=== PATIENT | female | born 1955 | race Caucasian/White ===

== ENCOUNTER 2019-10-09 20:25 | Emergency (ER) | payer BC ==
[2019-10-09 20:40] VITALS: BMI 23.8
[2019-10-09 21:04] VITALS: BP 138/79; PULSE 65; TEMP 97.8
--- NOTE | 2019-10-10 07:35 | PDOC ---
Documentation entered by Cristhian Nobles SCRIBE, acting as scribe for Carter Schmitz MD. Carter Quintana MD: This documentation has been prepared by the Mallorie esquivel Nirvannie, SCRIBE, under my direction and personally reviewed by me in its entirety. I confirm that the documentation accurately reflects all work, treatment, procedures, and medical decision making performed by me. History of Present Illness - General Chief Complaint: Ingestion Stated Complaint: ACCIDENTAL INGESTION Time Seen by Provider: 10/09/19 20:29 History Source: Patient Exam Limitations: No Limitations - History of Present Illness Initial Comments: 10/09/19 20:58 The patient is a year old female, with a significant past medical history of dementia, hypertension, hyperlipidemia, rheumatoid arthritis, who presents to the emergency department with accidental ingestion of her medications. As per family at bedside, the patient accidentally took her morning medications this evening at 7:45pm. While in the ED, patient feels at her baseline. History is limited secondary to patient's dementia. The medications include: Centrum Silver Coconut Oil 2000 mg [place]-3, Fish Oil 1000 mg Ginkgo Biloba 120 mg Lipitor 10 mg Lisinopril 20 mg Namenda 10 mg HCTZ 12.5 mg Xeljanz Xr 11 mg Aspirin 81 mg She denies recent fevers, chills, headache or dizziness. She denies recent nausea, vomit, diarrhea or constipation. She denies recent dysuria, frequency, urgency or hematuria. She denies recent chest pain or shortness of breath. Allergies: Shellfish Social history: Demented. Nonsmoker. Denies EtOH use and recreational drug use. Past History - Past Medical History Allergies/Adverse Reactions: Allergies Allergy/AdvReac Type Severity Reaction Status Date / Time shellfish derived Allergy Verified 10/09/19 20:27 Home Medications: Ambulatory Orders Alendronate Sodium [Fosamax] 1 tab WEEKLY 10/09/19 Aspirin [Aspirin EC] 81 mg PO DAILY 10/09/19 Atorvastatin Ca [Lipitor] 10 mg PO DAILY 10/09/19 Coconut Oil 2,000 mg PO DAILY 10/09/19 Donepezil HCl 10 mg PO DAILY 10/09/19 Ginkgo Biloba 120 mg PO DAILY 10/09/19 Hydrochlorothiazide [Hctz -] 12.5 mg PO DAILY 10/09/19 Lisinopril 20 mg PO DAILY 10/09/19 Memantine HCl [Namenda -] 10 mg PO BID 10/09/19 Multivit-Min/FA/Lycopen/Lutein [Centrum Silver Tablet] 1 each PO DAILY 10/09/19 [place]-3 Fatty Acids/Fish Oil [Fish Oil 1,000 mg Capsule] 1 each PO DAILY Tofacitinib Citrate [Xeljanz Xr] 11 mg PO DAILY 10/09/19 COPD: No Dementia: Yes HTN: Yes Hypercholesterolemia: Yes Other medical history: RHEUMATOID ARTHRITIS - Surgical History Cholecystectomy: Yes - Psycho Social/Smoking Cessation Hx Smoking History: Never smoked Have you smoked in the past 12 months: No Information on smoking cessation initiated: No Hx Alcohol Use: No Review of Systems - Review of Systems Able to Perform ROS?: Yes Comments:: 10/09/19 21:00 CONSTITUTIONAL: Absent: fever, no chills, no fatigue EYES: Absent: visual changes ENT: Absent: ear pain, no sore throat CARDIOVASCULAR: Absent: chest pain, no palpitations RESPIRATORY: Absent: cough, no SOB GI: Absent: abdominal pain, no nausea, no vomiting, no constipation, no diarrhea GENITOURINARY: Absent: dysuria, no frequency, no hematuria MUSKULOSKELETAL: Absent: back pain, no arthralgia, no myalgia SKIN: Absent: rash NEURO: Absent: headache All Other Systems: Reviewed and Negative *Physical Exam - Vital Signs Last Vital Signs Temp Pulse Resp BP Pulse Ox 67.8 F L 69 18 147/83 100 10/09/19 20:25 10/09/19 20:25 10/09/19 20:25 10/09/19 20:25 10/09/19 20:25 - Physical Exam 10/09/19 21:00 GENERAL: Well developed, well nourished. Awake and alert. No acute distress. HEENT: Normocephalic, atraumatic. PERRLA, EOMI. No conjunctival pallor. Sclera are non- icteric. Moist mucous membranes. Oropharynx is clear. NECK: Supple. Full ROM. No JVD. Carotid pulses 2+ and symmetric, without bruits. No thyromegaly. No lymphadenopathy. CARDIOVASCULAR: Regular rate and rhythm. No murmurs, rubs, or gallops. Distal pulses are 2+ and symmetric. PULMONARY: No evidence of respiratory distress. Lungs clear to auscultation bilaterally. No wheezing, rales or rhonchi. ABDOMINAL: Soft. Non-tender. Non-distended. No rebound or guarding. No organomegaly. Normoactive bowel sounds. MUSCULOSKELETAL Normal range of motion at all joints. No bony deformities or tenderness. No CVA tenderness. EXTREMITIES: No cyanosis. No clubbing. No edema. No calf tenderness. SKIN: Warm and dry. Normal capillary refill. No rashes. No jaundice. NEUROLOGICAL: +Mild dementia, confused, oriented to person and place, acting at baseline per [id number]. Alert, awake, appropriate. Cranial nerves 2-12 intact. No deficits to light touch and temperature in face, upper extremities and lower extremities. No motor deficits in the in face, upper extremities and lower extremities. Normoreflexic in the upper and lower extremities. Normal speech. Toes are down-going bilaterally. Gait is normal without ataxia. PSYCHIATRIC: Cooperative. Good eye contact. Appropriate mood and affect. Medical Decision Making - Medical Decision Making 10/10/19 07:33 Chronic dementia, mildly confused but oriented to person and place, no acute distress Afebrile, vital signs normal Physical exam otherwise normal including ENT, lungs, heart, and abdomen. Medication list reviewed. Unlikely that any of the medications at their prescribed doses would cause any untoward side effects. Instructed to resume regular medications in the morning, except for Xelanbeena, which she is instructed to hold tomorrow and resume again on Monday. Fully ambulatory and in no distress at discharge with daughter in law to follow-up with primary physician as directed. Discharge - Discharge Information Problems reviewed: Yes Clinical Impression/Diagnosis: Ingestion, drug, inadvertent or accidental Qualifiers: Encounter type: initial encounter Qualified Code(s): T50.901A - Poisoning by unspecified drugs, medicaments and biological substances, accidental ( unintentional), initial encounter Condition: Stable Disposition: HOME - Admission No - Follow up/Referral - Patient Discharge Instructions Patient Printed Discharge Instructions: DI for Accidental Ingestion -- Adult Additional Instructions: Take regular medications as scheduled tomorrow except for Xeljanz, which you should skip tomorrow and resume on [place] as usual. Return to ER if you experience any new symptoms such as lightheadedness, dizziness, excessive drowsiness, chest pain, shortness of breath, abdominal pain , nausea, vomiting, diarrhea, palpitations or irregular heartbeat. - Post Discharge Activity
== END 2019-10-09 20:58 | disposition home or self-care (01) ==
LOC: FER 20:25
DX: T50.901A Poisoning by unspecified drugs, medicaments and biological substances, accidental (unintentional), initial encounter (principal); Z91.013 Allergy to seafood; F03.90 Unspecified dementia, unspecified severity, without behavioral disturbance, psychotic disturbance, mood disturbance, and anxiety; I10 Essential (primary) hypertension; M06.9 Rheumatoid arthritis, unspecified; E78.00 Pure hypercholesterolemia, unspecified
CPT/HCPCS: 99281-25

== ENCOUNTER 2023-03-06 15:23 | Emergency (ER) | payer OTHER ==
[2023-03-06 15:48] VITALS: TEMP 98.4; BMI 17.3
[2023-03-06 17:30] LABS: POTASSIUM 4.7 mmol/L (3.5-5.1)
[2023-03-06 17:31] LABS: BASO % 0.7 % (0-2.0); EOS % 0.6 % (0-4.5); HEMATOCRIT 39.2 % (32.4-45.2); HEMOGLOBIN 12.7 GM/dL (10.7-15.3); LYMPH % 14.5 % (8-40); MCH 29.3 pg (25.7-33.7); MCHC 32.3 g/dl (32.0-36.0); MEAN CELL VOLUME 90.5 fl (80-96); MEAN PLT VOLUME 8.3 fl (7.5-11.1); MONO % 11.4 % (3.8-10.2); NEUT % 72.8 % (42.8-82.8); PLATELET COUNT 261 10^3/uL (134-434); RBC 4.33 M/mm3 (3.60-5.2); RDW 13.5 % (11.6-15.6); WHITE BLOOD COUNT 7.8 K/mm3 (4.0-10.0)
[2023-03-06 17:32] LABS: CALCIUM 9.6 mg/dL (8.5-10.1)
[2023-03-06 17:33] LABS: ALBUMIN 3.5 g/dl (3.4-5.0); BLOOD UREA NITROGEN 32.7 mg/dL (7-18); MAGNESIUM 2.2 mg/dL (1.8-2.4)
[2023-03-06 17:38] LABS: BILIRUBIN,TOTAL 0.2 mg/dL (0.2-1); TOT PROT 6.6 g/dl (6.4-8.2)
[2023-03-06] MEDS ORDERED: LORazepam 2 MG/ML SDV VIAL IM STA (20:02)
[2023-03-06] MEDS ORDERED: HALOPERIDOL LACTATE 5 MG/ML IM ONE ×2 (20:03→20:04)
[2023-03-06] MEDS ORDERED: SODIUM CHLORIDE 500 ML IV STA (21:50)
[2023-03-06 21:59] VITALS: BP 83/43; PULSE 59; RESP 16
== END 2023-03-06 22:45 ==
LOC: JER 15:23
PROC: 3E0337Z Introduction of Electrolytic and Water Balance Substance into Peripheral Vein, Percutaneous Approach (ICD-10-PCS; principal; 2023-03-06)
PROC: 3E023GC Introduction of Other Therapeutic Substance into Muscle, Percutaneous Approach (ICD-10-PCS; 2023-03-06)
PROC: 3E023GC Introduction of Other Therapeutic Substance into Muscle, Percutaneous Approach (ICD-10-PCS; 2023-03-06)
DX: S01.81XA Laceration without foreign body of other part of head, initial encounter (principal); R22.0 Localized swelling, mass and lump, head; F03.C0 Unspecified dementia, severe, without behavioral disturbance, psychotic disturbance, mood disturbance, and anxiety; W19.XXXA Unspecified fall, initial encounter
CPT/HCPCS: 36415; 70450-TC; 71045-TC-FY; 72125-TC; 72170-TC-FY; 80053; 83735; 84484; 85025; 93005; 93010; 99285-25

== ENCOUNTER 2024-01-30 10:41 | Observation (INO) | payer OTHER ==
[2024-01-30 11:38] VITALS: BMI 17.7
[2024-01-30] MEDS ORDERED: HALOPERIDOL LACTATE 5 MG/ML ONE (11:43)
[2024-01-30] MEDS: HALOPERIDOL LACTATE 5 MG/ML IM ONE (11:45)
[2024-01-30] MEDS: morphine CARPU-JECT 2 MG/1 ML DISP.SYRIN IVPUSH ONE ×2 (13:51→20:21)
[2024-01-30 14:17] LABS: BASO % 0.2 % (0-2.0); EOS % 0.1 % (0-4.5); HEMATOCRIT 39.6 % (32.4-45.2); HEMOGLOBIN 13.2 GM/dL (10.7-15.3); LYMPH % 6.2 % (8-40); MCH 29.1 pg (25.7-33.7); MCHC 33.2 g/dl (32.0-36.0); MEAN CELL VOLUME 87.7 fl (80-96); MEAN PLT VOLUME 8.1 fl (7.5-11.1); MONO % 5.3 % (3.8-10.2); NEUT % 88.2 % (42.8-82.8); PLATELET COUNT 247 10^3/uL (134-434); RBC 4.52 M/mm3 (3.60-5.2); RDW 13.7 % (11.6-15.6); WHITE BLOOD COUNT 10.4 K/mm3 (4.0-10.0)
[2024-01-30 14:41] LABS: POTASSIUM 3.8 mmol/L (3.5-5.1)
[2024-01-30 14:43] LABS: CALCIUM 9.5 mg/dL (8.5-10.1)
[2024-01-30 14:44] LABS: ALBUMIN 3.7 g/dl (3.4-5.0); BLOOD UREA NITROGEN 26.3 mg/dL (7-18); MAGNESIUM 1.9 mg/dL (1.8-2.4)
[2024-01-30 14:47] LABS: CREATININE 0.7 mg/dL (0.55-1.3)
[2024-01-30 14:48] LABS: BILIRUBIN,TOTAL 0.5 mg/dL (0.2-1); TOT PROT 6.4 g/dl (6.4-8.2)
[2024-01-30] MEDS: MIDAZOLAM HCL 2 MG/2 ML SINGLE DOSE VIAL IM ONE (15:02)
[2024-01-30] MEDS ORDERED: ACETAMINOPHEN INJECTION 100 ML IVPB ONE ×2 (15:32→21:52)
[2024-01-30] MEDS: ACETAMINOPHEN 1000 MG/100 ML BAG IVPB ONE (15:44)
[2024-01-30] MEDS: ACETAMINOPHEN 1000 MG/100 ML BAG IVPB SCH (22:05)
[2024-01-30] MEDS: D5-1/2NS+20 MEQ KCL - 20 MEQ/1,000 ML INFUS.BAG IV SCH (22:05)
[2024-01-31] MEDS ORDERED: ACETAMINOPHEN INJECTION 100 ML IVPB ONE ×3 (03:48→17:27)
[2024-01-31 06:29] LABS: BASO % 0.3 % (0-2.0); EOS % 0.2 % (0-4.5); HEMATOCRIT 36.7 % (32.4-45.2); LYMPH % 12.3 % (8-40); MCHC 32.6 g/dl (32.0-36.0); MEAN CELL VOLUME 88.9 fl (80-96); MONO % 13.2 % (3.8-10.2); PLATELET COUNT 222 10^3/uL (134-434); RBC 4.13 M/mm3 (3.60-5.2); RDW 13.6 % (11.6-15.6); WHITE BLOOD COUNT 7.9 K/mm3 (4.0-10.0)
[2024-01-31 06:34] LABS: INR 1.03 (0.83-1.09); PROTHROMBIN TIME (PATIENT) 11.6 SEC (9.7-13.0)
[2024-01-31 06:36] LABS: ACTIVATED PTT 31.6 SECONDS (25.2-36.5)
[2024-01-31 06:46] LABS: POTASSIUM 3.4 mmol/L (3.5-5.1)
[2024-01-31 06:51] LABS: CALCIUM 8.6 mg/dL (8.5-10.1)
[2024-01-31 06:52] LABS: BLOOD UREA NITROGEN 21.2 mg/dL (7-18)
[2024-01-31 06:55] LABS: CREATININE 0.5 mg/dL (0.55-1.3)
[2024-01-31] MEDS ORDERED: ACETAMINOPHEN 650 MG/20.3 ML ORAL SOLUTION (CUPS) ONE (08:03)
[2024-01-31] MEDS ORDERED: SERTRALINE HCL 50 MG TABLET (FP) ONE (11:20)
[2024-01-31] MEDS ORDERED: PANTOPRAZOLE 20 MG TABLET PO ONE (11:20)
[2024-01-31] MEDS: SERTRALINE HCL 50 MG TABLET (FP) PO SCH (12:08)
[2024-01-31] MEDS: PANTOPRAZOLE 20 MG TABLET PO SCH (12:08)
[2024-01-31] MEDS: LEFLUNOMIDE 10 MG TABLET PO SCH (12:34)
[2024-02-01] MEDS ORDERED: ACETAMINOPHEN 1000 MG/100 ML BAG IVPB PRN (10:31)
[2024-02-01] MEDS: ACETAMINOPHEN 1000 MG/100 ML BAG IVPB PRN (18:29)
[2024-02-02] MEDS: POLYETHYLENE GLYCOL (HEALTHYLAX) 3350 17 GM PACKET PO PRN (09:52)
[2024-02-02 13:28] VITALS: BP 162/79; PULSE 83; RESP 20; TEMP 98.2
== END 2024-02-02 14:42 ==
LOC: JER 10:41 → JERBED 17:04 → J7W 01-31 19:05
PROVIDERS: ADMIT Internal Medicine; ATTEND Internal Medicine
PROC: 2W3BX1Z Immobilization of Left Upper Arm using Splint (ICD-10-PCS; principal; 2024-01-30)
PROC: 3E033NZ Introduction of Analgesics, Hypnotics, Sedatives into Peripheral Vein, Percutaneous Approach (ICD-10-PCS; 2024-01-30)
PROC: 3E023GC Introduction of Other Therapeutic Substance into Muscle, Percutaneous Approach (ICD-10-PCS; 2024-01-30)
PROC: 3E033NZ Introduction of Analgesics, Hypnotics, Sedatives into Peripheral Vein, Percutaneous Approach (ICD-10-PCS; 2024-01-30)
PROC: 3E033GC Introduction of Other Therapeutic Substance into Peripheral Vein, Percutaneous Approach (ICD-10-PCS; 2024-01-30)
DX: S42.402A Unspecified fracture of lower end of left humerus, initial encounter for closed fracture (principal); W18.39XA Other fall on same level, initial encounter; Y93.89 Activity, other specified; Y92.098 Other place in other non-institutional residence as the place of occurrence of the external cause; S50.02XA Contusion of left elbow, initial encounter; F03.90 Unspecified dementia, unspecified severity, without behavioral disturbance, psychotic disturbance, mood disturbance, and anxiety; I10 Essential (primary) hypertension; E78.00 Pure hypercholesterolemia, unspecified; Z91.013 Allergy to seafood; M06.9 Rheumatoid arthritis, unspecified; K21.9 Gastro-esophageal reflux disease without esophagitis; F32.A Depression, unspecified; F41.9 Anxiety disorder, unspecified
CPT/HCPCS: 29125; 36415; 70450-TC; 71045-TC-FY; 72125-TC; 72170-TC-FY; 73030-TC-LT-FY; 73060-TC-LT-FY; 73070-TC-LT-FY; 80048; 80053; 83735; 84484; 85025; 85610; 85730; 86850; 86900; 86901; 87635; 93005; 93010; 96365; 96368; 96372; 96375; 96376; 99285-25; G0378; J0131